=== PATIENT | female | born 1950 | race Caucasian/White ===

== ENCOUNTER 2019-07-11 06:36 | Day surgery (SDC) | payer MEDICARE, BC ==
[2019-07-11] MEDS ORDERED: Lidocaine 1% PF 2 ML SDV INJECT ONE (06:37)
[2019-07-11] MEDS ORDERED: Propofol 200 MG/20 ML SDV IV ONE (06:37)
[2019-07-11] MEDS ORDERED: Lactated Ringers 1,000 ML IV SCH (06:45)
--- NOTE | 2019-07-11 09:04 | PCM.OPNOTE ---
- General Post-Op/Procedure Note Date of Surgery/Procedure: 07/11/19 Operative Procedure(s): c scope with cold loop cold forcep bx Findings: descending colon polyp Pre Op Diagnosis: screening Post-Op Diagnosis: descending colon polyp Anesthesia Technique: MAC Primary Surgeon: Conner Sheets Anesthesia Provider: Eduardo Beckham Pathology: descending colon polyp Complications: None Condition: Good Free Text/Narrative:: see dictation
--- NOTE | 2019-07-11 15:44 | OR ---
DATE OF OPERATION: 07/11/2019 SURGEON: Conner Sheets MD PROCEDURE PERFORMED: Colonoscopy with cold loop and cold forceps biopsy. PREOPERATIVE DIAGNOSIS: Need for screening colonoscope. POSTOPERATIVE DIAGNOSIS: Descending colon polyp. INDICATIONS FOR PROCEDURE: This is a 68-year-old white female, who presents for a followup exam. She is without complaints. DESCRIPTION OF OPERATION: After an excellent IV sedation was administered by Anesthesia, the patient was placed in the left lateral decubitus position. Digital rectal exam was performed. No marked abnormality was noted. Flexible colonoscope was inserted and advanced to the cecum. The prep was excellent. The following findings are noted. Ascending colon, unremarkable. Transverse colon, unremarkable. Descending colon; at the proximal descending colon, a small polypoid lesion, biopsied with cold biopsy forceps and cold loop snare and submitted. Sigmoid unremarkable. Rectum and anus, unremarkable. Colon was deflated as the scope was removed. The patient tolerated the procedure well and was taken to recovery room in good condition. Results will be sent to the patient by letter. /[id number] /MODL
== END 2019-07-11 09:52 | disposition home or self-care (01) ==
LOC: FB.SDS 06:36
PROVIDERS: ATTEND Surgery
DX: Z12.11 Encounter for screening for malignant neoplasm of colon (principal); K63.5 Polyp of colon; E78.5 Hyperlipidemia, unspecified; M81.0 Age-related osteoporosis without current pathological fracture; F41.9 Anxiety disorder, unspecified; F32.9 Major depressive disorder, single episode, unspecified; Z79.899 Other long term (current) drug therapy; Z91.041 Radiographic dye allergy status; Z88.8 Allergy status to other drugs, medicaments and biological substances
CPT/HCPCS: 45380; 45385; J2001; J2704; J7120; 00812-QZ; 88305